=== PATIENT | female | born 1935 | race Hispanic/Latino ===

== ENCOUNTER 2018-04-08 10:07 | Outpatient (CLI) | payer MEDICARE | END 2018-04-08 10:08 | disposition home or self-care (01) | LOC: RAD 10:07 ==

== ENCOUNTER 2018-04-20 14:22 | Outpatient (CLI) | payer MEDICARE | END 2018-04-20 14:23 | disposition home or self-care (01) | LOC: RAD 14:22 ==

== ENCOUNTER 2018-04-27 11:09 | Day surgery (SDC) | payer MEDICARE ==
[2018-04-25 12:59] VITALS: BMI 21.6
[2018-04-27 13:31] LABS: HEMOGLOBIN 11.9 g/dL (12.0-16.0); MEAN CELL VOLUME 95.2 fl (80.0-105.0); MEAN CORPUSCULAR HEMOGLOBIN 30.1 pg (25.0-35.0); MEAN CORPUSCULAR HGB CONC 31.6 g/dl (31.0-37.0); MEAN PLATELET VOLUME 9.1 fl (7.0-11.0); RBC 3.95 10^6/uL (3.5-6.1); RED CELL DISTRIBUTION WIDTH 12.6 % (11.5-14.5); WHITE BLOOD COUNT 5.2 10^3/uL (4.5-11.0)
[2018-04-27 13:34] LABS: BLOOD UREA NITROGEN 10 mg/dL (7-21); CALCIUM 9.5 mg/dL (8.4-10.5); GFR NON-AFRICAN AMERICAN > 60
[2018-04-27 13:35] LABS: INR 1.05; PARTIAL THROMBOPLASTIN TIME 33.4 Seconds (26.9-38.3); PROTHROMBIN TIME 11.9 SECONDS (9.4-12.5)
[2018-04-27] MEDS ORDERED: Lidocaine PF 2% (5 ml) Inj (For Cardiac Arrhy) ONE (15:40)
[2018-04-27] MEDS ORDERED: Iohexol 350 MG/100 ML VIAL ONE (15:40)
[2018-04-27] MEDS ORDERED: Midazolam 2 MG/2 ML VIAL ONE ×2 (16:17→16:31)
[2018-04-27] MEDS ORDERED: Oxycodone/Acetaminophen 5/325 mg Tab PO PRN ×2 (17:19→17:31)
[2018-04-27] MEDS ORDERED: Sodium Chloride 0.45% 1,000 ML IV SCH (17:30)
[2018-04-27 19:38] VITALS: RESP 18
--- NOTE | 2018-04-27 19:57 | VASCULAR ---
PROCEDURE: 1. T5 kyphoplasty 2. T11 kyphoplasty and biopsy HISTORY: Severe, refractory back pain. Unresponsive to bed rest and analgesics. Acute T5 and T11 compression fractures on MRI. PHYSICIAN(S): Rashard Lamb MD. TECHNIQUE: he relative risks and indications of the procedure were explained to the patient and her family and informed written consent obtained. The patient was placed prone on the arteriography table and the thoracolumbar spine prepped and draped in the usual sterile fashion. Conscious sedation and monitoring were provided throughout the procedure by a nurse. The T5 vertebral body was carefully localized with fluoroscopy. The skin and soft tissues were anesthetized with 1% Xylocaine. Under direct fluoroscopic guidance, a right transpedicular bone needles were placed into the posterior aspect of the T5 vertebral body. Next a 10 mm bone balloon was placed in the superior and anterior portion of the T5 vertebral body. A curette was used to position the balloon in the medial vertebral body. The 10 mm balloon was inflated with 3.5 cc of dilute contrast. The balloon was removed and 2.0 cc of barium-impregnated PMMA cement placed in the T5 vertebral body. No extravasation was appreciated. Next the T11 vertebral body was localized under fluoroscopy. Bilateral transpedicular bone needles were placed into the posterior aspect of the T11 vertebral body. Through the right needle a biopsy of the T11 vertebral body was performed. Bilateral 10 mm bone balloons were inserted and inflated to approximately 4 cc. The balloons were removed and 7.5 cc of barium-impregnated PMMA cement instilled into the T11 vertebral body. No extravasation was present. The bone needles were removed and dressings applied. The patient tolerated the procedure well. IMPRESSION: 1. Fluoroscopically-guided T5 kyphoplasty. 2. Fluoroscopically-guided T11 biopsy and kyphoplasty
[2018-04-28 09:06] VITALS: BP 142/80; PULSE 65; TEMP 97.6; O2SAT 96
[2018-04-28] MEDS ORDERED: Magnesium Oxide 400 mg Tab UD PO SCH (10:00)
--- NOTE | 2018-04-28 19:34 | HP ---
DATE OF EXAM: 04/28/2018 HISTORY OF PRESENT ILLNESS: I know the patient very well. I sent her to Dr. Rashard Lamb for kyphoplasty, he had kept her overnight. She is a sweet, pleasant 82-year-old white female who had fallen, had compression fractures in her back, I sent her to Dr. Rashard Lamb for evaluation for the back pain and difficulty moving around. I had her on some outpatient medications for the pain, it did not help her well. She has slight dementia. She had tonsillectomy. She drinks occasional glass of wine. No smoking. She is very pleasant and she is alert and expressive care and she had kyphoplasty in two areas. ALLERGIES: SHE HAS NO KNOWN DRUG ALLERGIES. REVIEW OF SYSTEMS: No acute vision changes, hearing changes. No shortness of breath. No cough. No chest pain or palpitations. No abdominal pain, nausea, vomiting, constipation, or diarrhea. She has no leg issues. She has back pain. No skin issues that she knows of. PHYSICAL EXAMINATION: VITAL SIGNS: Temperature 97.6, pulse 65, blood pressure 142/80, respiratory rate 18, O2 sat 96% on room air. HEENT: Head is atraumatic and normocephalic. Extraocular muscles are intact. Throat is moist. NECK: Supple. Thyroid midline. No palpable appreciable lymphadenopathy. HEART: Regular rate. LUNGS: Decreased breath sounds, but clear. ABDOMEN: Soft. Positive bowel sounds. EXTREMITIES: No edema. SKIN: Skin for the most part is intact. NEUROLOGIC: GCS is 15. Cranial nerves II through XII are grossly intact. LABORATORY DATA: Sodium 139, potassium 4.3, BUN 10, creatinine 0.6, GFR greater than 60, sugar is 87, and calcium 9.5. INR is 1.05. White count 5.2, hemoglobin 11.9, hematocrit 37.6, and platelets 237. IMPRESSION AND PLAN: She should be able to be discharged today if she walks well, I believe, the nurses told me she walked well with physical therapy already, so that is a good thing. I think Dr. Lamb will be able to discharge her later today, status post two kyphoplasty. I will her seen in the office in the next 4 days. Discussed with the and daughter. Caesar Hutchinson DO [facility] # [id number]
--- NOTE | 2018-04-30 22:36 | DS ---
HOSPITAL COURSE: She is status post two kyphoplasties by Dr. Rashard Lamb. She did much better. She was held overnight. The labs were good. She is feeling better, less back pain and then she was out to be discharged to outpatient followup. I will be seeing her in the office. She came to the office on a house call. Caesar Hutchinson DO MTDD
== END 2018-04-28 11:55 | disposition home or self-care (01) ==
LOC: SDSVAS 11:09 → 5RNO 18:42 → SDSVAS 04-28 11:55
PROVIDERS: ATTEND Radiology Vascular & Interventional Radiology
DX: S22.050A Wedge compression fracture of T5-T6 vertebra, initial encounter for closed fracture (principal); S22.080A Wedge compression fracture of T11-T12 vertebra, initial encounter for closed fracture; W19.XXXA Unspecified fall, initial encounter
CPT/HCPCS: 22513; 22515; 36415; 80048; 85027; 85610; 85730; 88305; 97116; 97161; 99152; 99153; C1713; G8978; G8979; G8980; J1644; J2250; J2405; J3010; J7030; Q9967